=== PATIENT | female | born 2000 | race Hispanic/Latino ===

== ENCOUNTER 2024-03-31 09:48 | Inpatient (IN) | payer MEDICAID, OTHER ==
[2024-03-30 13:55] LABS: Hematocrit 39.6 % (34.9-44.5); Hemoglobin 13.5 g/dL (12.0-15.5); Platelet Count 166 10x3/uL (150-450)
[2024-03-30 14:18] LABS: Syphilis Antibody Nonreactive (Nonreactive); Syphilis Antibody Index 0.06 S/CO (<1.00 Non-Reactive)
[2024-03-30 14:20] LABS: HBsAg Index 0.22 S/CO (0-0.99); Hep B Surf Ag Non-Reactive S/CO (NonReactive)
[2024-03-31] MEDS ORDERED: Diphenoxylate HCl/Atropine Tablet PO PRN (10:05)
[2024-03-31] MEDS ORDERED: Oxytocin 30 units/NS 500 ML 500 ML IV SCH (10:05)
[2024-03-31] MEDS ORDERED: Misoprostol 200 MCG TAB PR PRN (10:05)
[2024-03-31] MEDS ORDERED: hydrALAZINE 20 MG/ML VIAL SLOW IVP PRN ×2 (10:05→16:13)
[2024-03-31] MEDS ORDERED: Ondansetron PF 4 MG/2 ML Vial IVP PRN ×4 (10:05→16:13)
[2024-03-31] MEDS ORDERED: Bicitra 30 ML UDCUP PO PRN (10:05)
[2024-03-31] MEDS ORDERED: Promethazine HCl 25 MG/ML VIAL IM PRN ×3 (10:05→16:13)
[2024-03-31] MEDS ORDERED: Methylergonovine 0.2 MG/ML VIAL IM PRN (10:05)
[2024-03-31] MEDS ORDERED: Tranexamic Acid 1,000 MG/10 ML VIAL IVP PRN (10:05)
[2024-03-31] MEDS ORDERED: Carboprost 250 MCG/ML AMP IM PRN (10:05)
[2024-03-31 10:06] VITALS: BMI 35.1
[2024-03-31] MEDS: Famotidine/PF 20 mg/2ml Vial SLOW IVP PRN (12:08)
[2024-03-31] MEDS: CEFAZOLIN 2 GM in Sodium Chloride 0.9% 100 ML IVPB SCH (12:08)
[2024-03-31] MEDS: Lactated Ringer's 1,000 ML IV SCH (12:08)
[2024-03-31] MEDS ORDERED: Morphine 4 MG/ML VIAL SLOW IVP PRN (13:46)
[2024-03-31] MEDS ORDERED: Naloxone HCl 0.4 mg/ml Vial IVP PRN ×2 (13:46)
[2024-03-31] MEDS ORDERED: fentaNYL 50 mcg/mL 1 mL Vial SLOW IVP PRN (13:46)
[2024-03-31] MEDS ORDERED: Ketorolac Tromethamine 30 MG (1 mL) VIAL IVP PRN (13:46)
[2024-03-31] MEDS ORDERED: Moisturizing Cream (Eucerin) 113 GM JAR TOP PRN (13:46)
[2024-03-31] MEDS ORDERED: Naloxone HCl 0.4 mg/ml Vial IV PRN (13:46)
[2024-03-31] MEDS ORDERED: diphenhydrAMINE 50 MG/ML VIAL IVP PRN (13:46)
[2024-03-31] MEDS ORDERED: Communication Order-Pharmacy FS SCH (14:00)
[2024-03-31] MEDS ORDERED: Ketorolac Tromethamine 30 MG (1 mL) VIAL IVP SCH (14:00)
[2024-03-31] MEDS: Meperidine HCl/PF 25 MG (1 mL) VIAL SLOW IVP PRN (15:26)
[2024-03-31] MEDS ORDERED: Meperidine HCl/PF 25 MG (1 mL) VIAL IM PRN (16:13)
[2024-03-31] MEDS ORDERED: Lanolin Ointment 7 GM TUBE TOP PRN (16:13)
[2024-03-31] MEDS ORDERED: diphenhydrAMINE 25 MG CAP PO PRN (16:13)
[2024-03-31] MEDS ORDERED: Simethicone Chewable 80 MG TAB PO PRN (16:13)
[2024-03-31] MEDS ORDERED: Bisacodyl 10 MG SUPP PR PRN (16:13)
[2024-03-31] MEDS: fentaNYL 50 mcg/mL 1 mL Vial ONE (16:18)
[2024-03-31] MEDS: Oxytocin 10 UNITS/ML VIAL ONE (16:19)
[2024-03-31] MEDS: PHENYLEPHRINE-NS 100 MCG/ML 10 ML SYRINGE ONE (16:19)
[2024-03-31] MEDS: Ketorolac Tromethamine 30 MG (1 mL) VIAL ONE (16:19)
[2024-03-31] MEDS: Ondansetron PF 4 MG/2 ML Vial ONE (16:19)
[2024-03-31] MEDS: Morphine PF 10 MG/10 ML VIAL ONE (16:19)
[2024-03-31] MEDS: ePHEDrine Sulfate 50 MG/10 ML VIAL ONE (16:19)
[2024-03-31] MEDS: Boostrix 0.5 ML (Tdap) VIAL (>/=7 yrs of age) IM ONE (18:30)
[2024-03-31] MEDS: Ferrous Sulfate 325 MG TAB PO SCH (19:26)
[2024-03-31] MEDS: Ketorolac Tromethamine 30 MG (1 mL) VIAL IVP SCH (19:54)
[2024-03-31] MEDS: Docusate 100 MG CAP PO SCH (23:18)
[2024-04-01 04:06] LABS: Hematocrit 32.2 % (34.9-44.5); Hemoglobin 10.9 g/dL (12.0-15.5); Mean Corpuscular HGB CONC 33.9 g/dL (32.0-36.0); Mean Corpuscular Hemoglobin 29.3 pg (27.0-33.0); Mean Corpuscular Volume 86.6 fL (81.6-98.3); Platelet Count 126 10x3/uL (150-450); RBC Distribution Width 12.7 % (11.5-14.5); Red Blood Cell (RBC) Count 3.72 10x6/uL (3.90-5.03); White Blood Cell (WBC) Count 8.4 10x3/uL (3.5-10.5)
[2024-04-01] MEDS: Prenatal Vitamin 1 TAB PO SCH (09:09)
[2024-04-01] MEDS: HYDROcodone/Acetaminophen 5/325 mg Tablet PO PRN (09:43)
[2024-04-01] MEDS: Ibuprofen 800 MG TAB PO SCH (14:43)
[2024-04-02] MEDS: HYDROcodone/Acetaminophen 5/325 mg Tablet PO PRN (04:49)
[2024-04-02 11:46] VITALS: BP 108/60; TEMP 97.8
== END 2024-04-02 16:30 | disposition home or self-care (01) | DRG 788 ==
LOC: CSHLD 09:48 → CSHPP 16:10
PROVIDERS: ADMIT Family Medicine; ATTEND Family Medicine
PROC: 10D00Z1 Extraction of Products of Conception, Low, Open Approach (ICD-10-PCS; principal; 2024-03-31)
DX: O34.211 Maternal care for low transverse scar from previous cesarean delivery (principal); Z3A.40 40 weeks gestation of pregnancy; Z37.0 Single live birth; O13.4 Gestational [pregnancy-induced] hypertension without significant proteinuria, complicating childbirth; Z79.82 Long term (current) use of aspirin
CPT/HCPCS: 36415; 51702; 85014; 85018; 85027; 85049; 86780; 86850; 86900; 86901; 87340; J1885; J2175; J2274; J2405; J2590; J3010; J3490; J7120